=== PATIENT | female | born 1990 | race Caucasian/White ===

== ENCOUNTER 2018-09-23 16:38 | Emergency (ER) | payer OTHER ==
[~2018-09-23] VITALS: Ht 157.5 cm; Wt 68.9 kg
[~2018-09-23 16:38] MED LIST: ANTIVERT25 M1 PO
== END 2018-09-23 21:45 ==
LOC: ER 16:38
DX: B34.8 Other viral infections of unspecified site (principal); R00.2 Palpitations